=== PATIENT | female | born 1975 | race Caucasian/White ===

== ENCOUNTER 2025-09-17 15:35 | Emergency (ER) | payer OTHER ==
[~2025-09-17] VITALS: Ht 157.5 cm; Wt 129.5 kg
[2025-09-17 15:47] VITALS: BP 154/83; TEMP 97.7; O2SAT 96
[2025-09-17] MEDS: ketorolac trometh 30MG/ML vial 30 MG/ML VIAL IM ONE (17:21)
--- NOTE | 2025-09-17 17:38 | Physician Documentation ---
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 Since then she has been seen at [facility] where an x-ray was performed and indicated there was a slight subluxation of the humeral head. She has decreased range of motion of her left upper extremity and pain and burning Day of Onset: Sep 17, 2025 Tetanus within 5 years?: No Medication Reconciliation Allergies: Coded Allergies: codeine (Verified Allergy, Intermediate, HIVES, 09/17/25) Past Medical History Last Menstrual Period: Jun 27, 2025 Review of Systems All Other Systems at this time: Reviewed and Negative ROS As stated above in the HPI, otherwise all systems are reviewed and negative. Physical Exam Vital Signs: Temperature: 97.7, Heart Rate: 64, Respiratory Rate: 16, BP: 154/83, Pulse Oximetry: 96, Weight: 129.500 Oxygen Flow Rate: 0 Physical Exam General: Alert, no apparent distress. Extremities: Decreased range of motion positive drop-arm test normal motor reflexes Neurologic: Oriented x4. Psychiatric: Normal mood and affect. Skin: Normal color, warm and dry. No edema, no ecchymosis. Progress Results/Orders Results/Orders Completed Orders - DEJUAN ROJAS NP Ketorolac Trometh 30mg/Ml Vial (Toradol (09/17/25 17:00) Gabapentin Capsule (Neurontin Capsule) (09/17/25 16:59) Medications Received in ER Medications (Trade) Dose Ordered Sig/Gamaliel Route PRN Reason Start Time Stop Time Status Last Admin Dose Admin (Toradol inj. 30mg/ml) 30 mg ONCE ONCE IM 09/17/25 17:00 09/17/25 17:01 DC 09/17/25 17:21 30 MG (Neurontin capsule) 400 mg NOW STAT PO 09/17/25 16:59 09/17/25 17:01 DC 09/17/25 17:20 400 MG Vital Signs 09/17/25 09/17/25 15:47 17:21 Temp 97.7 Pulse 64 Resp 12 16 B/P (MAP) 154/83 Pulse Ox 96 O2 Flow Rate 0 Medical Decision Making Additional information obtaine: old records Findings Highly suspicious of internal rotator cuff derangement based on patient's presentation. Told her I could treat her for pain while she is here in the ED but she will need further evaluation in the outpatient setting which will likely include an MRI and a referral to go see physical therapy Differential Dx:Considerations: Include: AC separation, Adhesive capsulitis, arthritis, Bicipital tendonitis, Calcific tendonitis, Cervical disc disease, Contusion, Dislocation, Fracture: Humerus, Fracture: Scapula, Fracture: Clavicle, Gallbladder Disease, Hematoma, Impingement syndrome, Myocardial infarction, Neurovascular Injury, Rotator cuff injury, SC dislocation, Sprain, Subacromial bursitis, other Departure Disposition: HOME / SELF CARE / HOMELESS Impression: Primary Impression: Shoulder pain Additional Impression: Tendinitis of shoulder Condition: Improved Discharge Instructions: Shoulder Pain Additional Instructions: Based on my physical exam and your outpatient x-ray results, I am suspicious for internal rotator cuff derangement. This will likely require a outpatient therapy including a physical therapy referral and a MRI for further evaluation. Referrals: NO PRIMARY CARE PROVIDER (PCP) Education Educated: Patient Educated regarding: diagnosis Signature Scribe Signature: g Attestation: Scribed for Dejuan Rojas Manager Site by Dejuan Major NP . 09/17/25 17:38 DEJUAN ROJAS NP Sep 17, 2025 17:38
[2025-09-17 17:46] VITALS: PULSE 78; RESP 16
== END 2025-09-17 17:47 | disposition home or self-care (01) ==
LOC: ER 15:36
DX: M75.92 Shoulder lesion, unspecified, left shoulder (principal); M25.512 Pain in left shoulder; Z88.5 Allergy status to narcotic agent
CPT/HCPCS: 96372; 99283; J1885